=== PATIENT | male | born 1980 | race Native Hawaiian/Other Pacific Islander ===

== ENCOUNTER 2020-12-22 16:06 | Emergency (ER) | payer BC ==
[~2020-12-22] VITALS: Ht 190.5 cm; Wt 129.3 kg
[2020-12-22 17:35] VITALS: BP 135/90; TEMP 98.4
== END 2020-12-22 17:35 | disposition home or self-care (01) ==
LOC: ED 16:06
PROC: 0HQGXZZ Repair Left Hand Skin, External Approach (ICD-10-PCS; principal; 2020-12-22)
DX: S61.211A Laceration without foreign body of left index finger without damage to nail, initial encounter (principal); W26.0XXA Contact with knife, initial encounter; Y92.89 Other specified places as the place of occurrence of the external cause
CPT/HCPCS: 90471; 90715; 99283